=== PATIENT | male | born 1965 ===

== ENCOUNTER 2024-04-21 19:23 | Emergency (ER) | payer BC ==
[~2024-04-21] VITALS: Ht 170.2 cm; Wt 111.6 kg
[2024-04-21] MEDS ORDERED: VANCOMYCIN IV 1,500 MG in IV DEXTROSE 5% 250 ML IV ONE (20:00)
[2024-04-21] MEDS ORDERED: levoFLOXacin 750 MG/D5W 150 ML PIGGYBACK IV ONE (20:00)
[2024-04-21] MEDS ORDERED: IV NS 1000 ML 1,000 ML IV ONE (20:00)
[2024-04-21 21:13] LABS: BASOPHILS # (AUTO) 0.1 K/UL (0.0-0.2); EOSINOPHILS # (AUTO) 0.1 K/uL (0.0-0.7); EOSINOPHILS % (AUTO) 1.4 % (0.0-7.0); HEMATOCRIT 44.3 % (36.7-47.1); HEMOGLOBIN 14.3 g/dL (12.5-16.3); LYMPHOCYTES # (AUTO) 2.2 K/uL (0.8-4.8); LYMPHOCYTES % (AUTO) 24.7 % (20.5-51.5); MEAN CORPUSCULAR HEMOGLOBIN 29.5 uug (23.8-33.4); MEAN CORPUSCULAR HGB CONC 32 g/dL (32.5-36.3); MEAN CORPUSCULAR VOLUME 91.1 fL (73.0-96.2); MONOCYTES # (AUTO) 1.1 K/uL (0.1-1.30); MONOCYTES % (AUTO) 12.1 % (0.0-11.0); NEUTROPHILS # (AUTO) 5.5 K/uL (1.8-8.9); NEUTROPHILS % (AUTO) 60.8 % (38.5-71.5); PLATELET COUNT (AUTO) 269 K/uL (152-348); RED BLOOD CELL COUNT(AUTO) 4.86 MIL/uL (4.06-5.63)
[2024-04-21 21:16] LABS: DIFFERENTIAL COMMENT 1
[2024-04-21 21:20] LABS: CALCIUM 8.9 mg/dL (8.5-10.1); CARBON DIOXIDE 31 mmol/L (21-32); CHLORIDE 106 mmol/L (98-107); CREATININE 0.9 mg/dL (0.6-1.3); GLUCOSE 93 mg/dL (74-106); POTASSIUM 3.7 mmol/L (3.5-5.1); SODIUM SERUM 143 mmol/L (136-145); UREA NITROGEN, BLOOD 14 mg/dL (7-18)
[2024-04-21 21:33] LABS: ALANINE AMINOTRANSFERASE 32 U/L (16-63); ALBUMIN 3.2 g/dL (3.4-5.0); ALKALINE PHOSPHATASE 87 U/L (50-136); ASPARTATE AMINOTRANSFERASE 17 U/L (15-37); BILIRUBIN,DIRECT 0.2 mg/dL (0.0-0.2); BILIRUBIN,TOTAL 0.5 mg/dL (0.2-1.0); TOTAL PROTEIN, SERUM 7.1 g/dL (6.4-8.2)
[2024-04-21 21:34] LABS: ACETAMINOPHEN < 2.0 ug/mL (10-30)
[2024-04-21 21:58] LABS: ETHANOL < 3 MG/DL (0-10)
[2024-04-22] MEDS ORDERED: LORAZEPAM 1 MG TABLET ONE (03:18)
[2024-04-22] MEDS: LORAZEPAM 0.5 MG TABLET PO ONE (03:19)
[2024-04-22] MEDS ORDERED: LORAZEPAM 2 MG/1 ML VIAL ONE ×2 (04:03→15:41)
[2024-04-22] MEDS ORDERED: diphenhydrAMINE 50 MG/1 ML VIAL ONE ×2 (04:03→15:41)
[2024-04-22] MEDS ORDERED: HALOPERIDOL LACTATE 5 MG/1 ML VIAL ONE ×2 (04:03→15:41)
[2024-04-22] MEDS: diphenhydrAMINE 50 MG/1 ML VIAL IM ONE ×2 (04:08→15:51)
[2024-04-22] MEDS: LORAZEPAM 2 MG/1 ML VIAL IM ONE ×2 (04:08→15:59)
[2024-04-22] MEDS: HALOPERIDOL LACTATE 5 MG/1 ML VIAL IM ONE ×2 (04:08→15:51)
[2024-04-22 04:51] LABS: *BILIRUBIN,URIN NEGATIVE (NEGATIVE); *BLOOD, URINE NEGATIVE (NEGATIVE); *CLARITY,URINE CLEAR (CLEAR); *COLOR,URINE YELLOW (YELLOW); *KETONES,URINE 1+ (NEGATIVE); *PROTEIN,URINE TRACE (NEGATIVE); *UROBILINOGEN,URINE 0.2 E.U./dl (NORMAL); LEUKOCYTE ESTERASE ,URINE NEGATIVE (NEGATIVE); NITRITE, URINE NEGATIVE (NEGATIVE); PH,URINE 5.5 (5.0-8.0); UGLUCOSE 3+ (NEGATIVE)
[2024-04-22 05:07] LABS: *AMPHETAMINE, URINE NEGATIVE (NEGATIVE); *BARBITURATE, URINE NEGATIVE (NEGATIVE); *BENZODIAZEPINE, URINE NEGATIVE (NEGATIVE); *CANNABINOID, URINE NEGATIVE (NEGATIVE); *COCCAINE, URINE NEGATIVE (NEGATIVE); *OPIATE, URINE NEGATIVE (NEGATIVE); *PHENCYCLIDINE SCREEN,URINE NEGATIVE (NEGATIVE)
[2024-04-22 05:10] LABS: BACTERIA,URINE RARE /HPF (NONE SEEN); RBC,URINE 0-3 /HPF (0-3); SPERM,URINE FEW /HPF (NONE SEEN); SQUAMOUS EPITHELIAL CELL,UR FEW /HPF (NONE SEEN); WBC,URINE 0-3 /HPF (0-3)
[2024-04-22 05:11] LABS: FENTANYL, URINE NEGATIVE (NEGATIVE)
[2024-04-22 09:07] VITALS: O2SAT 96
== END 2024-04-22 16:00 ==
LOC: ER 19:23
DX: R45.1 Restlessness and agitation (principal); T54.91XA Toxic effect of unspecified corrosive substance, accidental (unintentional), initial encounter; E46 Unspecified protein-calorie malnutrition; G47.30 Sleep apnea, unspecified; R03.0 Elevated blood-pressure reading, without diagnosis of hypertension; F31.9 Bipolar disorder, unspecified; F20.9 Schizophrenia, unspecified; Y92.89 Other specified places as the place of occurrence of the external cause; Z20.822 Contact with and (suspected) exposure to COVID-19; Z88.0 Allergy status to penicillin; Z68.38 Body mass index [BMI] 38.0-38.9, adult
CPT/HCPCS: 80076; 80048; 85025; 87426; 36415; 99285; 80299; 80320; 80307; 81001; 82962; 96372 ×2; J1200 ×2; J1630 ×2; J2060 ×2; A4606; A4663; C1758; G0480